=== PATIENT | female | born 1995 | race Two or more races ===

== ENCOUNTER 2017-06-05 08:00 | Outpatient (CLI) | payer BC, OTHER | END 2017-06-05 08:01 | disposition home or self-care (01) | LOC: LAB.N 08:00 | PROVIDERS: ATTEND Physician Assistant Medical | DX: Z00.00 Encounter for general adult medical examination without abnormal findings (principal); Z91.89 Other specified personal risk factors, not elsewhere classified; R53.83 Other fatigue | CPT/HCPCS: 36415; 80048; 81599; 84443; 85025; 86803; 87389; 87491; 87591 ==

== ENCOUNTER 2018-07-29 21:11 | Outpatient (CLI) | payer BC ==
--- NOTE | 2018-07-30 01:17 | Ultrasound Report ---
Reason: OTHER OVARIAN CYST, PELVIC PAIN Procedure Date: 07/29/2018 Accession Number: [id number] / [id number] Procedure: US - Pelvic w/Transvaginal CPT Code: FULL RESULT: EXAM: PELVIC ULTRASOUND EXAM DATE: 07/29/2018 09:16 PM. CLINICAL HISTORY: OTHER OVARIAN CYST, PELVIC PAIN. COMPARISON: None. TECHNIQUE: Realtime transabdominal pelvic scan performed to identify the uterus and adnexa and as an overview of other pelvic structures, followed by transvaginal scan to provide greater detail of the uterus and adnexa, with static image documentation. FINDINGS: Uterus: 7.6 x 4.1 x 4.9 cm, volume 81 cc. Anteverted position. Normal overall size. Masses: Left fundal subserosal fibroid measuring 2.1 x 1.4 x 1.0 cm. Endometrium: 5 mm. Normal. Cervix: Unremarkable. Right Ovary: 2.8 x 1.9 x 2.7 cm, volume 7.5 cc. Dominant complex follicle or corpus luteum measuring 1.9 x 1.7 x 1.6 cm. Normal Doppler flow signal. Left Ovary: 2.6 x 1.6 x 2.2 cm, volume 4.9 cc. Normal echotexture and blood flow. Free Fluid: None. Other: None. IMPRESSION: 1. Dominant complex follicle or corpus luteum on the right ovary measuring 1.9 x 1.7 x 1.6 cm. 2. Small fundal subserosal fibroid. [facility]
== END 2018-07-29 21:12 | disposition home or self-care (01) ==
LOC: DI 21:11
PROVIDERS: ATTEND Nurse Practitioner Obstetrics & Gynecology
DX: D25.2 Subserosal leiomyoma of uterus (principal)
CPT/HCPCS: 76830; 76856

== ENCOUNTER 2020-04-19 08:00 | Outpatient (CLI) | payer BC ==
[2020-04-19 20:26] LABS: BACTERIAL VAGINOSIS DNA NEGATIVE (NEGATIVE); CANDIDA GLABRATA DNA NEGATIVE (NEGATIVE); CANDIDA GROUP DNA POSITIVE (NEGATIVE); CANDIDA KRUSEI DNA NEGATIVE (NEGATIVE); TRICHOMONAS VAGINALIS DNA NEGATIVE (NEGATIVE)
[2020-04-19 21:21] LABS: CHLAMYDIA TRACHOMATIS DNA NEGATIVE (NEGATIVE); NEISSERIA GONORRHOEAE DNA NEGATIVE (NEGATIVE); TRICHOMONAS VAGINALIS DNA NEGATIVE (NEGATIVE)
== END 2020-04-19 23:59 | disposition home or self-care (01) ==
LOC: LAB.R 08:00
PROVIDERS: ATTEND Physician Assistant Medical
DX: Z20.2 Contact with and (suspected) exposure to infections with a predominantly sexual mode of transmission (principal)
CPT/HCPCS: 87491; 87591; 87661; 87801